=== PATIENT | female | born 1985 | race Caucasian/White ===

== ENCOUNTER 2017-11-28 21:47 | Emergency (ER) | payer OTHER ==
[2017-11-28 22:17] VITALS: BP 134/80
--- NOTE | 2017-11-28 22:34 | ED Physician Documentation ---
PD HPI ABD PAIN - Stated complaint Stated Complaint: BLEEDING 14 WEEKS - Chief complaint Chief Complaint: Abd Pain - History obtained from History obtained from: Patient, Family - History of Present Illness Timing - onset: Other ( at 14 weeks gestation which blood type is known to be Rh+ presents with slight vaginal bleeding tonight and cramping radiating to the back which concerns her. It is bilateral. No fevers. She did have a recent UTI.) Review of Systems Constitutional: denies: Fever, Chills GI: reports: Abdominal Pain. 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 : None HEENT: None Psych: None Musculoskeletal: None Derm: None - Past Surgical History Past Surgical History: Yes Ortho: Other HEENT: Myringotomy (tubes), Tonsil/Adenoidectomy - Present Medications Home Medications: Ambulatory Orders Medication Instructions Recorded Confirmed #103/Iron Fumarate/FA 1 tab PO DAILY 11/28/17 11/28/17 [ Tablet] - Allergies Allergies/Adverse Reactions: Allergies Allergy/AdvReac Type Severity Reaction Status Date / Time No Known Drug Allergies Allergy Verified 11/28/17 22:17 - Social History Does the pt smoke?: No Smoking Status: Never smoker Does the pt drink ETOH?: No Does the pt have substance abuse?: No - Immunizations Immunizations are current?: Yes PD ED PE NORMAL - Vitals Vital signs reviewed: Yes - General General: Alert and oriented X 3, No acute distress - Abdomen Abdomen: Soft, Non tender - Female Female : Other (Bedside ultrasound demonstrates single live intrauterine with heart rate of 146 and positive motion. No free fluid.) - Neuro Neuro: Alert and oriented X 3, Normal speech Results - Vitals Vitals: Vital Signs - 24 hr 11/28/17 11/28/17 11/28/17 22:14 22:35 22:48 Temperature 36.5 C Heart Rate 91 Respiratory 16 17 17 Rate Blood Pressure 134/80 H O2 Saturation 100 Oxygen O2 Source Room air - Labs Labs: Laboratory Tests 11/28/17 20:31 Urine Color YELLOW Urine Clarity CLEAR Urine pH 6.0 Ur Specific [place] >=1.030 H Urine Protein NEGATIVE Urine Glucose (UA) NEGATIVE Urine Ketones TRACE Urine Occult Blood MODERATE H Urine Nitrite NEGATIVE Urine Bilirubin NEGATIVE Urine Urobilinogen 0.2 (NORMAL) Ur Leukocyte Esterase NEGATIVE Urine RBC 11-25 H Urine WBC 0-3 Ur Squamous Epith Cells MANY Squamous H Urine Bacteria Few Ur Microscopic Review INDICATED Urine Culture Comments NOT INDICATED Departure - Departure Disposition: 01 Home, Self Care Clinical Impression: Abdominal cramping affecting Condition: Good Record reviewed to determine appropriate education?: Yes Instructions: ED Miscarriage Poss
[2017-11-28 22:45] LABS: BILIRUBIN,URINE NEGATIVE (NEGATIVE); GLUCOSE, URINE (UA) NEGATIVE (NEGATIVE); KETONES,URINE (UA) TRACE mg/dL (NEGATIVE); LEUKOCYTE ESTERASE, URINE NEGATIVE (NEGATIVE); NITRITE,URINE NEGATIVE (NEGATIVE); OCCULT BLOOD,URINE MODERATE (NEGATIVE); PROTEIN,URINE NEGATIVE (NEGATIVE); UROBILINOGEN,URINE 0.2 (NORMAL) E.U./dL (NORMAL)
[2017-11-28 22:46] LABS: CLARITY,URINE CLEAR (CLEAR)
[2017-11-28 22:52] LABS: BACTERIA,URINE Few /HPF (None Seen); SQUAMOUS EPITHELIAL CELL,UR MANY Squamous (<= Few)
== END 2017-11-28 23:00 | disposition home or self-care (01) ==
LOC: ED 21:47
DX: O26.891 Other specified pregnancy related conditions, first trimester (principal); R10.9 Unspecified abdominal pain; Z3A.14 14 weeks gestation of pregnancy
CPT/HCPCS: 81001; 81003; 87086; 99283

== ENCOUNTER 2018-05-01 13:34 | Emergency (ER) | payer OTHER ==
[2018-05-01] MEDS ORDERED: cefTRIAXone 1 GM VIAL IVP STA (13:37)
[2018-05-01 14:41] LABS: BILIRUBIN,URINE NEGATIVE (NEGATIVE); GLUCOSE, URINE (UA) NEGATIVE (NEGATIVE); KETONES,URINE (UA) NEGATIVE (NEGATIVE); LEUKOCYTE ESTERASE, URINE TRACE (NEGATIVE); NITRITE,URINE NEGATIVE (NEGATIVE); OCCULT BLOOD,URINE TRACE-LYSE (NEGATIVE); PROTEIN,URINE TRACE mg/dL (NEGATIVE); UROBILINOGEN,URINE 0.2 (NORMAL) E.U./dL (NORMAL)
[2018-05-01 14:49] VITALS: BP 133/92
[2018-05-01 14:50] LABS: CLARITY,URINE HAZY (CLEAR)
--- NOTE | 2018-05-01 14:59 | ED Physician Documentation ---
History of Present Illness - Stated complaint Stated Complaint: FEMALE /35 WEEKS - Chief complaint Chief Complaint: UTI - History obtained from History obtained from: Patient - History of Present Illness Timing: Today Pain level max: 0 Pain level now: 0 Improved by: Nothing Worsened by: Nothing - Additonal information Additional information: Patient is a 33-year-old female is approximately 35 weeks , sent here for IV Rocephin for a Proteus UTI by her OB. No fevers. No vomiting. No back pain. 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 : Chronic bladder infection HEENT: None Psych: None Musculoskeletal: None Derm: None - Past Surgical History Past Surgical History: Yes Ortho: Other HEENT: Myringotomy (tubes), Tonsil/Adenoidectomy - Present Medications Home Medications: Ambulatory Orders Medication Instructions Recorded Confirmed #103/Iron Fumarate/FA 1 tab PO DAILY 11/28/17 11/28/17 [ Tablet] Cefdinir 300 mg PO BID #14 capsule 05/01/18 - Allergies Allergies/Adverse Reactions: Allergies Allergy/AdvReac Type Severity Reaction Status Date / Time No Known Drug Allergies Allergy Verified 05/01/18 14:01 - Social History Does the pt smoke?: No Smoking Status: Never smoker Does the pt drink ETOH?: No Does the pt have substance abuse?: No - Immunizations Immunizations are current?: Yes PD ED PE NORMAL - Vitals Vital signs reviewed: Yes - General General: Alert and oriented X 3, No acute distress - HEENT HEENT: Moist mucous membranes - Neck Neck: Supple, no meningeal sign - Cardiac Cardiac: RRR - Respiratory Respiratory: No respiratory distress, Clear bilaterally - Abdomen Abdomen: Soft, Non tender - Back Back: No CVA TTP - Derm Derm: Warm and dry - Extremities Extremities: No edema - Neuro Neuro: Alert and oriented X 3 - Psych Psych: Normal mood Results - Vitals Vitals: Vital Signs - 24 hr 05/01/18 05/01/18 13:54 14:49 Temperature 36.2 C L Heart Rate 120 H 115 H Respiratory 18 Rate Blood Pressure 133/96 H 133/92 H O2 Saturation 96 97 Oxygen O2 Source Room air - Labs Labs: Laboratory Tests 05/01/18 14:27 Urine Color YELLOW Urine Clarity HAZY Urine pH 7.0 Ur Specific [place] 1.020 Urine Protein TRACE Urine Glucose (UA) NEGATIVE Urine Ketones NEGATIVE Urine Occult Blood TRACE-LYSE Urine Nitrite NEGATIVE Urine Bilirubin NEGATIVE Urine Urobilinogen 0.2 (NORMAL) Ur Leukocyte Esterase TRACE H Urine RBC 0-5 Urine WBC 11-25 H Ur Squamous Epith Cells FEW Squamous Urine Bacteria Moderate H Urine Mucus Few Strands Ur Microscopic Review INDICATED Urine Culture Comments INDICATED PD MEDICAL DECISION MAKING - ED course Complexity details: reviewed results, re-evaluated patient, considered differential, d/w patient ED course: Patient was given ceftriaxone for her UTI. Will place on Ceftin ear for home. She is well-appearing, nontoxic. Afebrile. Had an ultrasound last week but does not know the results yet. We will have her follow-up with her OB at the [facility] for this. She will return if she worsens. Patient counseled regarding signs and symptoms for which I believe and urgent re-evaluation would be necessary. Patient with good understanding of and agreement to plan and is comfortable going home at this time This document was made in part using voice recognition software. While efforts are made to proofread this document, sound alike and grammatical errors may occur. - Sepsis Event Vital Signs: Vital Signs - 24 hr 05/01/18 05/01/18 13:54 14:49 Temperature 36.2 C L Heart Rate 120 H 115 H Respiratory 18 Rate Blood Pressure 133/96 H 133/92 H O2 Saturation 96 97 Oxygen O2 Source Room air Departure - Departure Disposition: 01 Home, Self Care Clinical Impression: Urinary tract infection Qualifiers: Urinary tract infection type: acute cystitis Hematuria presence: without hematuria Qualified Code(s): N30.00 - Acute cystitis without hematuria Condition: Good Instructions: ED UTI Cystitis Female Follow-Up: your,doctor in 1 week [Other] Prescriptions: Cefdinir 300 mg PO BID #14 capsule Comments: Take all antibiotics until gone. Return if you worsen. Follow-up with your OB for further care. Discharge Date/Time: 05/01/18 15:04
[2018-05-01 15:04] LABS: RBC,URINE 0-5 /HPF (0-5); SQUAMOUS EPITHELIAL CELL,UR FEW Squamous (<= Few)
[2018-05-01 15:05] LABS: BACTERIA,URINE Moderate /HPF (None Seen); MUCUS,URINE Few Strands
== END 2018-05-01 15:04 | disposition home or self-care (01) ==
LOC: ED 13:34
DX: O23.43 Unspecified infection of urinary tract in pregnancy, third trimester (principal); B96.4 Proteus (mirabilis) (morganii) as the cause of diseases classified elsewhere; Z3A.35 35 weeks gestation of pregnancy
CPT/HCPCS: 81001; 81003; 87077; 87086; 87181; 96374; 99283

== ENCOUNTER 2018-05-25 11:53 | Outpatient (CLI) | payer OTHER ==
[2018-05-25 13:07] LABS: HGB - HEMOGLOBIN 13.2 g/dL (12.0-16.0); MEAN CORPUSCULAR HEMOGLOBIN 32.7 pg (27.0-31.0); MEAN CORPUSCULAR VOLUME 93.3 fL (81.0-99.0); MEAN PLATELET VOLUME 9.5 fL (7.9-10.8); NEUTROPHILS % (AUTO) 67.5 %; RED BLOOD COUNT 4.04 10^6/uL (4.20-5.40); RED CELL DISTRIBUTION WIDTH 12.8 % (12.0-15.0); WHITE BLOOD COUNT 10.4 x10^3/uL (4.8-10.8)
[2018-05-25 13:18] LABS: ALBUMIN 2.9 g/dL (3.2-5.5); ALBUMIN/GLOBULIN RATIO 0.8 (1.0-2.2); ALKALINE PHOSPHATASE 150 IU/L (42-121); ALT ALANINE AMINOTRANSFERASE < 10 IU/L (10-60); AST ASPARTATE AMINOTRANSFERASE 17 IU/L (10-42); BILIRUBIN,TOTAL 0.4 mg/dL (0.2-1.0); BUN - BLOOD UREA NITROGEN 8 mg/dL (6-20); CARBON DIOXIDE - CO2 27 mmol/L (21-32); CHLORIDE 100 mmol/L (101-111); CREATININE 0.7 mg/dL (0.4-1.0); GFR - MDRD 96 (>89); GLUCOSE 90 mg/dL (70-100); SODIUM 136 mmol/L (135-145); TOTAL PROTEIN 6.5 g/dL (6.7-8.2)
[2018-05-25 13:19] LABS: CREATININE,URINE 112.6 mg/dL; PROTEIN/CREATININE RATIO,URINE 0.1 (<=0.2)
[2018-05-25 14:47] VITALS: BP 129/88
== END 2018-05-25 15:00 | disposition home or self-care (01) ==
LOC: WFO 11:53 → FBP 11:56 → WFO 15:00
PROVIDERS: ATTEND Obstetrics & Gynecology
DX: O99.613 Diseases of the digestive system complicating pregnancy, third trimester (principal); K21.9 Gastro-esophageal reflux disease without esophagitis; Z3A.38 38 weeks gestation of pregnancy; O99.89 Other specified diseases and conditions complicating pregnancy, childbirth and the puerperium; R03.0 Elevated blood-pressure reading, without diagnosis of hypertension; H53.8 Other visual disturbances
CPT/HCPCS: 36415; 80053; 82570; 84156; 85027; 99213

== ENCOUNTER 2018-05-26 08:51 | Outpatient (CLI) | payer OTHER ==
[2018-05-26 10:35] VITALS: BP 118/78
== END 2018-05-26 10:20 | disposition home or self-care (01) ==
LOC: WFO 08:51 → FBP 08:54 → WFO 10:20
PROVIDERS: ATTEND Obstetrics & Gynecology
DX: Z34.83 Encounter for supervision of other normal pregnancy, third trimester (principal)

== ENCOUNTER 2019-04-29 16:08 | Emergency (ER) | payer OTHER ==
[2019-04-29 16:21] VITALS: BP 152/72
--- NOTE | 2019-04-29 16:30 | ED Physician Documentation ---
History of Present Illness - Stated complaint Stated Complaint: SORE THROAT - Chief complaint Chief Complaint: Heent - History obtained from History obtained from: Patient - History of Present Illness Timing: How many days ago (2) Pain level max: 5 Pain level now: 4 - Additonal information Additional information: 34-year-old female presents to the emergency department for sore throat for the past 2 days. Worsening today. Fevers at home. Body aches. No nausea or vomiting. Denies any possibility of . She is not breast-feeding. 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 : Chronic bladder infection HEENT: None Psych: None Musculoskeletal: None Derm: None - Past Surgical History Past Surgical History: Yes Ortho: Other HEENT: Myringotomy (tubes), Tonsil/Adenoidectomy - Present Medications Home Medications: Ambulatory Orders Medication Instructions Recorded Confirmed #103/Iron Fumarate/FA 1 tab PO DAILY 11/28/17 11/28/17 [ Tablet] Cefdinir 300 mg PO BID #14 capsule 05/01/18 - Allergies Allergies/Adverse Reactions: Allergies Allergy/AdvReac Type Severity Reaction Status Date / Time No Known Drug Allergies Allergy Verified 05/01/18 14:01 - Social History Does the pt smoke?: No Smoking Status: Never smoker Does the pt drink ETOH?: No Does the pt have substance abuse?: No - Immunizations Immunizations are current?: Yes PD ED PE NORMAL - Vitals Vital signs reviewed: Yes - General General: Alert and oriented X 3, No acute distress, Well developed/nourished - HEENT HEENT: PERRL, Ears normal, Moist mucous membranes, Other (Mild posterior pharyngeal erythema with tonsillar exudates. Uvula midline. Normal phonation. No trismus.) - Neck Neck: Supple, no meningeal sign, Other (Shotty anterior lymphadenopathy) - Cardiac Cardiac: RRR - Respiratory Respiratory: No respiratory distress, Clear bilaterally - Derm Derm: Warm and dry, No rash - Neuro Neuro: Alert and oriented X 3 - Psych Psych: Normal mood, Normal affect Results - Vitals Vitals: Vital Signs - 24 hr 04/29/19 16:20 Temperature 36.0 C L Heart Rate 91 Respiratory 16 Rate Blood Pressure 152/72 H O2 Saturation 99 Oxygen O2 Source Room air - Labs Labs: Laboratory Tests 04/29/19 16:17 Group A Strep Rapid Negative PD MEDICAL DECISION MAKING - ED course Complexity details: reviewed results, re-evaluated patient, considered differential, d/w patient ED course: Rapid strep is negative. She is well-appearing, nontoxic. Afebrile here. Tolerating p.o. without difficulty. Well-hydrated. Will treat as a viral pharyngitis while the throat culture is pending. Patient counseled regarding signs and symptoms for which I believe and urgent re-evaluation would be necessary. Patient with good understanding of and agreement to plan and is comfortable going home at this time This document was made in part using voice recognition software. While efforts are made to proofread this document, sound alike and grammatical errors may occur. Departure - Departure Disposition: 01 Home, Self Care Clinical Impression: Pharyngitis Qualifiers: Pharyngitis/tonsillitis etiology: unspecified etiology Qualified Code(s): J02.9 - Acute pharyngitis, unspecified Condition: Good Instructions: ED Strep Pharyngitis Poss Follow-Up: KENDAL SELF [Primary Care Provider] - Within 1 week Comments: Drink plenty of water. Return if you worsen. You can use Motrin or Tylenol as needed for pain. Your rapid strep test is negative, if your throat culture returns positive, we will call you. Discharge Date/Time: 04/29/19 17:01
== END 2019-04-29 17:01 | disposition home or self-care (01) ==
LOC: ED 16:08
DX: J02.9 Acute pharyngitis, unspecified (principal)
CPT/HCPCS: 87070; 87430; 99283; 99284

== ENCOUNTER 2020-08-23 09:37 | Emergency (ER) | payer OTHER ==
--- NOTE | 2020-08-23 09:44 | ED Physician Documentation ---
PD HPI OPHTHO - Stated complaint Stated Complaint: RT EYE SWELLING - History obtained from History obtained from: Patient - History of Present Illness Timing - onset: Today Timing - duration: Hours (1) Timing - details: Abrupt onset, Still present (she states her yound child accidnetally scratched her eye with fingernail across front. Pain with eye movement.) Location: Right Quality / character: Aching Associated symptoms: Tearing, FB sensation, Photophobia. No: Redness, Swelling, Discharge, Loss of vision Contributing factors: Blunt trauma (scratched with fingernail). 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 : Chronic bladder infection HEENT: None Psych: None Musculoskeletal: None Derm: None - Past Surgical History Past Surgical History: Yes Ortho: Other HEENT: Myringotomy (tubes), Tonsil/Adenoidectomy - Present Medications Home Medications: Ambulatory Orders Medication Instructions Recorded Confirmed Tetracaine 0.5% Ophth Drops 4 drops RIGHTEYE Q1H PRN #1 bottle 08/23/20 [Tetracaine] - Allergies Allergies/Adverse Reactions: Allergies Allergy/AdvReac Type Severity Reaction Status Date / Time No Known Drug Allergies Allergy Verified 08/23/20 09:44 - Social History Does the pt smoke?: No Smoking Status: Never smoker Does the pt drink ETOH?: No Does the pt have substance abuse?: No - Immunizations Immunizations are current?: Yes PD ED PE NORMAL - Vitals Vital signs reviewed: Yes - General General: Alert and oriented X 3, Well developed/nourished, Other (apppears uncomfortable, sensitive to light. ) - HEENT HEENT: PERRL, EOMI PD ED PE EXPANDED - Eyes Eyes: Corneal abrasion (across anterior aspect, superficial linear. ), Fluorescein uptake, Anterior chambers clear, Normal fundi. No: Injected conj/sclera, Hyphema Results - Vitals Vitals: Vital Signs - 24 hr 08/23/20 09:43 Temperature 36.7 C Heart Rate 96 Respiratory 18 Rate Blood Pressure 149/94 H O2 Saturation 99 Oxygen O2 Source Room air PD MEDICAL DECISION MAKING - ED course Complexity details: considered differential (feels better with proparacaine. ), d/w patient Departure - Departure Disposition: 01 Home, Self Care Clinical Impression: Corneal abrasion Qualifiers: Encounter type: initial encounter Laterality: right Qualified Code(s): S05.01XA - Injury of conjunctiva and corneal abrasion without foreign body, right eye, initial encounter Condition: Stable Record reviewed to determine appropriate education?: Yes Instructions: ED Eye Injury Corneal Abrasion Follow-Up: KENDAL SELF [Primary Care Provider] - Prescriptions: Tetracaine 0.5% Ophth Drops [Tetracaine] 4 drops RIGHTEYE Q1H PRN #1 bottle PRN Reason: Pain Comments: Use the numbing eyedrops every hour or so as needed for discomfort. Do not use it beyond 1 to 2 days as we want to see how much improvement you have in your abrasion should be healed within that timeframe. You can also use lubricating eyedrops such as aqua tears or refresh as a lubricant to have less irritation from eyelid movement. Recheck if signs of infection or if not completely better within couple of days. Discharge Date/Time: 08/23/20 10:33
[2020-08-23 09:45] VITALS: BP 149/94
== END 2020-08-23 10:33 | disposition home or self-care (01) ==
LOC: ED 09:37
DX: S05.01XA Injury of conjunctiva and corneal abrasion without foreign body, right eye, initial encounter (principal); W50.4XXA Accidental scratch by another person, initial encounter
CPT/HCPCS: 99282; 99283

== ENCOUNTER 2021-01-02 19:40 | Emergency (ER) | payer OTHER ==
--- OUTSIDE RECORDS SUMMARY | 2021-01-02 20:06 | EXTERNAL MEDICAL SUMMARY RPT | Continuity of Care Document ---
:1985 Demographics Phone Unavailable Preferred Language Unknown Marital Status Unknown Taoism Affiliation Unknown Race Unknown Ethnic Group Unknown Author Organization [facility] Address [address] [phone] Phone Social History date description facility [phone]
[2021-01-02] MEDS ORDERED: IBUPROFEN 800 MG TABLET PO STA (20:41)
--- NOTE | 2021-01-02 20:42 | ED Physician Documentation ---
PD HPI LOWER EXT INJURY - Stated complaint Stated Complaint: LT KNEE PX - Chief complaint Chief Complaint: Trauma Ext - History obtained from History obtained from: Patient - History of Present Illness PD HPI LOW EXT INJURY LOCATION: Left (Playing softball tonight planted her foot and rotated to throw and felt a pop in left knee pain. Moderate pain now and unable to walk or bear weight. 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 : Chronic bladder infection HEENT: None Psych: None Musculoskeletal: None Derm: None - Past Surgical History Past Surgical History: Yes Ortho: Other HEENT: Tonsil/Adenoidectomy - Allergies Allergies/Adverse Reactions: Allergies Allergy/AdvReac Type Severity Reaction Status Date / Time No Known Drug Allergies Allergy Verified 01/02/21 19:58 - Social History Does the pt smoke?: No Smoking Status: Never smoker Does the pt drink ETOH?: No Does the pt have substance abuse?: No - Immunizations Immunizations are current?: Yes PD ED PE NORMAL - Vitals Vital signs reviewed: Yes - General General: Alert and oriented X 3, No acute distress - HEENT HEENT: PERRL, EOMI - Extremities Extremities: Other (No effusion of the left knee with medial joint line and posterior tenderness. She is unable to flex it due to pain. Ligamentous testing seems intact but limited ability to flex at the knee limits exam.) - Neuro Neuro: Alert and oriented X 3, Normal speech - Psych Psych: Normal mood, Normal affect Results - Vitals Vitals: Vital Signs - 24 hr 01/02/21 01/02/21 01/02/21 19:55 20:26 21:15 Temperature 36.5 C 36.5 C Heart Rate 101 H 101 H 93 Respiratory 16 16 16 Rate Blood Pressure 133/88 H 133/88 H 136/83 H O2 Saturation 100 100 100 Oxygen O2 Source Room air PD MEDICAL DECISION MAKING - ED course ED course: 35-year-old woman with acute left knee pain after twisting injury. Three-view x-ray interpreted contemporaneously BMI is negative except for small effusion and some degenerative changes. No fracture. She was placed in a knee immobilizer and given crutches. Close return follow-up precautions were given. Departure - Departure Disposition: 01 Home, Self Care Clinical Impression: Internal derangement of knee Qualifiers: Laterality: left Qualified Code(s): M23.92 - Unspecified internal derangement of left knee Condition: Good Record reviewed to determine appropriate education?: Yes Instructions: ED Sprain Knee Collateral Ligaments Comments: X-ray today does not show a fracture but does does show a small effusion. [place] especially if not improving. May need MRI to rule out internal derangement of the knee. Return for new or worsening symptoms. Ibuprofen as needed for pain. Discharge Date/Time: 01/02/21 21:15
--- NOTE | 2021-01-02 20:58 | XRAY Report ---
PROCEDURE: Knee 3 View LT INDICATIONS: injury/teisted L knee. C/o pain. TECHNIQUE: 3 views of the left knee(s) were acquired. COMPARISON: None. FINDINGS: Bones: No fractures or dislocations. No suspicious bony lesions. Mild left knee joint degeneration Soft tissues: Trace joint effusion. No suspicious soft tissue calcifications. IMPRESSION: Mild left knee joint degeneration. Trace joint effusion. No definite fracture however fo llow-up radiographs in 10 days could be performed if the patient's symptoms do not improve to exclude occult fracture/assess for healing sclerosis. Reviewed by: Julio Carroll MD on 01/02/2021 8:56 PM PDT Approved by: Julio Carroll MD on 01/02/2021 8:56 PM PDT Station ID: [id number]
[2021-01-02 21:24] VITALS: BP 136/83
== END 2021-01-02 21:15 | disposition home or self-care (01) ==
LOC: ED 19:40
DX: M23.92 Unspecified internal derangement of left knee (principal)
CPT/HCPCS: 73562; 99282; 99283; A9270